=== PATIENT | female | born 1950 | race Caucasian/White ===

== ENCOUNTER → 2019-05-04 | Outpatient (CLI) | payer OTHER ==
--- NOTE | 2019-05-04 19:26 | REP ---
Left ankle series: Four views. History: Injury. Findings: Four views of the left ankle demonstrate mild to moderate soft tissue swelling about the lateral malleolus. There is a subtle cortical irregularity on oblique radiograph in the distal fibular tip suggestive of a chip fracture. No medial malleolar or other tibial fracture is seen. There is a chip fracture from the dorsal surface of the anterior talus nondisplaced. This is visible on the lateral radiograph. Impression: Distal fibular and anterior talar chip fractures. Associated swelling. Ankle mortise is intact. Electronically Signed by Jeramie Burns MD 05/05/2019 07:18 P
--- NOTE | 2019-05-04 19:27 | REP ---
Left foot: Four views. History: Injury. Findings: Four views of the left foot show overall normal mineralization. The lateral view demonstrates the chip fracture seen on the ankle series in the dorsal surface of the distal talus without displacement. There is some overlying soft-tissue swelling. The oblique view of the foot also shows a chip fracture of the distal fibular tip to better advantage than the ankle series. Impression: There are chip fractures of the distal talus and the lateral malleolus with overlying soft tissue swelling. Electronically Signed by Jeramie Burns MD 05/05/2019 07:18 P
== END ==
LOC: M LRY 16:40
PROVIDERS: ATTEND Nurse Practitioner Family
DX: S82.832A Other fracture of upper and lower end of left fibula, initial encounter for closed fracture (principal); S92.155A Nondisplaced avulsion fracture (chip fracture) of left talus, initial encounter for closed fracture; S99.912A Unspecified injury of left ankle, initial encounter; W10.9XXA Fall (on) (from) unspecified stairs and steps, initial encounter; Y92.9 Unspecified place or not applicable

== ENCOUNTER → 2019-05-06 | Outpatient (CLI) | payer OTHER | LOC: M PLARAD 09:28 | PROVIDERS: ATTEND Physician Assistant Medical | DX: S92.125A Nondisplaced fracture of body of left talus, initial encounter for closed fracture (principal); X58.XXXA Exposure to other specified factors, initial encounter; Y92.89 Other specified places as the place of occurrence of the external cause ==